=== PATIENT | female | born 1990 | race Caucasian/White ===

== ENCOUNTER 2017-02-13 15:43 | Emergency (ER) | payer OTHER ==
[2017-02-13 14:35] LABS: URINE APPEARANCE CLOUDY; URINE BILIRUBIN POS (NEG); URINE BLOOD 3+ (NEG); URINE COLOR YELLOW; URINE GLUCOSE NEG (NORM); URINE KETONE TRACE (NEG); URINE LEUKOCYTE ESTERASE 3+ (NEG); URINE NITRATE NEG (NEG); URINE PROTEIN 2+ (NEG); URINE SPECIFIC GRAVITY 1.025 (1.003-1.035)
[2017-02-13 14:37] LABS: MICRO INDICATED? YES; URINE SOURCE CLEAN CATCH
[2017-02-13 14:42] LABS: URINE BACTERIA 1+ (NEG); URINE RBC 50-100 /[HPF] (0-2); URINE WBC 200-300 /[HPF] (0-5)
[~2017-02-13 15:43] MED LIST: ADDERALL PO; ADDERALL5 MG PO; ALPRAZOLAM PO; AMITRIPTYLINE H25 MG PO; AMOXICILLIN500 M1 PO; CERTAGEN PO; CIPRO PO; CLARITIN10 M2 PO; ELIMITE60 GM TOP; FLEXERIL10 MG PO; IBUPROFEN; PHENERGAN PO; PREDNISONE10 MG/DOSE PO; PYRIDIUM PO; REMERON PO; RHINOCORT7 GM 200 D; ROBAXIN500 MG PO; SEROQUEL50 M1 PO; VICOPROFEN 200-1 TAB PO; VISTARIL PO; VOLTAREN50 MG PO; VOLTAREN75 MG PO
== END 2017-02-13 16:10 | disposition home or self-care (01) ==
LOC: SED 15:43
DX: N39.0 Urinary tract infection, site not specified (principal); R31.9 Hematuria, unspecified; Z98.890 Other specified postprocedural states; Z88.2 Allergy status to sulfonamides; Z88.6 Allergy status to analgesic agent
CPT/HCPCS: 81003; 87086; 87088; 87186; 99282; 99283

== ENCOUNTER 2017-05-09 20:20 | Emergency (ER) | payer OTHER ==
--- NOTE | ~2017-05-09 | CR58 ---
[facility] [[email or web address] A Service of [facility] & [facility] RADIOLOGY TEXT RESULTS PATIENT: YAS GARDNER LOCATION: SED : [birth year] UNIT #: [id number] AGE: [address]: Juvenal Navarrete SEX: F ORDER DR: [id number] [place] [id number] E MR#: [id number] Acc #: [id number] NAME: YAS GARDNER : 1990 SEX: F STUDY DATE/TIME: 05/09/2017 22:33 UNIT: SED ROOM: STUDY DESCRIPTION: CR Cervical Spine 2 or 3 Views Attending Physician: Juvenal Navarrete P.A.-C. Ordering Physician: Juvenal Navarrete P.A.-C. Primary Care Physician: No Primary Care Physician MEDICAL IMAGING REPORT This report is preliminary unless electronic signature is present. EXAM Cervical spine 05/09 2233 hours. INDICATIONS Neck pain with nausea after falling 2 days ago. FINDINGS Four views of the cervical spine are compared with 12/16/10. No fracture or subluxation is seen. Vertebral body heights and disc spaces are normal. Prevertebral soft tissues are normal. IMPRESSION Negative cervical spine. Dictated by... Servando Marques Jr., M.D. THIS IS AN ELECTRONICALLY VERIFIED REPORT Servando Marques Jr., M.D. at 05/10/2017 9:21 PM MICHA/kimberly TD: 05/10/2017 11:27 JOB #: [id number] MEDICAL IMAGING REPORT Page 1 of 1
--- NOTE | ~2017-05-09 | CR63 ---
[facility]. [facility] A Service of [facility] & [facility] RADIOLOGY TEXT RESULTS PATIENT: YAS GARDNER LOCATION: SED : [birth year] UNIT #: [id number] AGE: [address]: Juvenal Navarrete SEX: F ORDER DR: [id number] [place] [id number] E MR#: [id number] Acc #: [id number] NAME: YAS GARDNER : 1990 SEX: F STUDY DATE/TIME: 05/09/2017 22:33 UNIT: SED ROOM: STUDY DESCRIPTION: CR Chest 2 View Attending Physician: Juvenal Navarrete P.A.-C. Ordering Physician: Juvenal Navarrete P.A.-C. Primary Care Physician: No Primary Care Physician MEDICAL IMAGING REPORT This report is preliminary unless electronic signature is present. EXAM Chest x-ray, 05/09, 22:33. INDICATIONS Fell 2 days ago. Nausea. COMPARISON 04/29/14 FINDINGS PA and lateral examination of the chest upright shows a good expansion of the parenchyma with a normal distribution of the pulmonary vascularity. There is no indication of congestion, effusion, infiltrate, tumor, or nodular density. The pleural reflections and diaphragmatic contours are normal. The cardiac silhouette and mediastinal anatomy is within normal limits. IMPRESSION Normal chest. Dictated by... Servando Marques Jr., M.D. THIS IS AN ELECTRONICALLY VERIFIED REPORT Servando Marques Jr., M.D. at 05/10/2017 9:21 PM MICHA/jennifer TD: 05/10/2017 11:16 JOB #: [id number] MEDICAL IMAGING REPORT Page 1 of 1
--- NOTE | ~2017-05-09 | EKG ---
PATIENT: YAS GARDNER UNIT #: [id number] Ventricular Rate: 50 BPM Atrial Rate: 50 BPM P-R Interval: 148 ms QRS Duration: 86 ms Q-T Interval: 422 ms QTC Calculation(Bezet): 384 ms P [place]: 48 degrees Calculated R [place]: 76 degrees Calculated T [place]: 61 degrees Diagnosis Line: Sinus bradycardia Diagnosis Line: Otherwise normal ECG Diagnosis Line: When compared with ECG of 19-NOV-2013 15:13, Diagnosis Line: No significant change was found Diagnosis Line: Confirmed by MAGDALENE DESIR MD ([id number]) on Diagnosis Line: 05/11/2017 8:32:02 AM INTERPRETING MD: KARLEE SAHU
--- NOTE | ~2017-05-09 | CT71 ---
[facility] A Service of [facility] RADIOLOGY TEXT RESULTS PATIENT: YAS GARDNER LOCATION: SED : [birth year] UNIT #: [id number] AGE: [address]: Juvenal Navarrete SEX: F ORDER DR: [id number] [address] [address] [id number] E MR#: [id number] Acc #: [id number] NAME: YAS GARDNER. : 1990 SEX: F STUDY DATE/TIME: 05/09/2017 22:45 UNIT: SED ROOM: STUDY DESCRIPTION: CT Head Wo Contrast Attending Physician: Juvenal Navarrete P.A.-C. Ordering Physician: Juvenal Navarrete P.A.-C. Primary Care Physician: Primary Care Physician No MEDICAL IMAGING REPORT This report is preliminary unless electronic signature is present. EXAM CT head without contrast dated 05/09/[address] head without contrast dated 04/29/2014 HISTORY Fell 2 days ago. Patient hit head on floor which was tiled today. Headache, neck pain and nausea today. TECHNIQUE This CT exam was performed with one or more of the following radiation dose reduction techniques: automatic exposure control, adjustment of mA and/or kV according to patient size, and iterative reconstruction. FINDINGS CT of the head was obtained without contrast in the axial plane as per the protocol. Axial noncontrast images were obtained from the skull base to the vertex. Ventricular size and configuration are normal. There is no evidence of acute infarct or hemorrhage. There are no extraaxial fluid collections. No mass lesion or mass effect is seen. There are no skull fractures. Mild left maxillary sinus mucosal thickening. IMPRESSION Normal noncontrast head CT. Dictated by... Devon Farrar M.D. THIS IS AN ELECTRONICALLY VERIFIED REPORT [facility] A Service of [facility] RADIOLOGY TEXT RESULTS PATIENT: YAS GARDNER LOCATION: SED : [birth year] UNIT #: [id number] AGE: [address]: Juvenal Navarrete PAC SEX: F ORDER DR: Devon Farrar M.D. at 05/12/2017 3:38 PM CPR/mario TD: 05/10/2017 11:30 JOB #: [id number] MEDICAL IMAGING REPORT Page 1 of 1
[2017-05-09] MEDS ORDERED: COMBIVENT U/D3 M3 (20:50)
[2017-05-09] MEDS ORDERED: BREO ELLIPTA I1 EACH (20:51)
[2017-05-09] MEDS ORDERED: ZYRTEC (20:51)
[2017-05-09] MEDS ORDERED: ALBUTEROL20 ml (20:51)
[2017-05-09] MEDS ORDERED: KLONOPIN PO (20:52)
[2017-05-09] MEDS ORDERED: LAMICTAL (20:52)
[2017-05-09 22:12] LABS: BASOPHIL% 0.2 % (0-2.5); EOSINOPHIL# 0.4 X10e3 (0-0.7); EOSINOPHIL% 5.4 % (0.0-7.0); HEMATOCRIT 43.4 % (35.0-45.0); HEMOGLOBIN 14.7 gm/dL (12.0-16.0); LYMPHOCYTE# 2.2 X10e3 (1.0-3.5); LYMPHOCYTE% 30.2 % (17.0-45.0); MEAN CELL VOLUME 98.8 FL (83-96); MEAN CORPUSCULAR HEMOGLOBIN 33.3 PG (28-34); MEAN CORPUSCULAR HGB CONC 33.7 g/dL (30-36); MEAN PLATELET VOLUME 8.2 FL (6.5-11.5); MONOCYTE# 0.5 X10e3 (0-1.0); MONOCYTE% 6.4 % (3.0-12.0); NEUTROPHIL# 4.2 X10e3 (1.5-7.1); NEUTROPHIL% 57.8 % (40-75); PLATELET COUNT 218 X10e3 (140-420); WHITE BLOOD COUNT 7.2 X10e3 (4.0-10.5)
[2017-05-09 22:13] LABS: DIFF IND NO
[2017-05-09 22:26] LABS: ALBUMIN SERUM 3.7 g/dL (3.5-5.0); BILIRUBIN, DIRECT 0.2 mg/dL (0.0-0.2); BILIRUBIN,INDIRECT 0.7 mg/dL (0.0-0.9); BILIRUBIN,TOTAL 0.9 mg/dL (0.2-2.0); CALCIUM SERUM 8.3 mg/dL (8.4-10.2); CREATININE SERUM 0.6 mg/dL (0.6-1.4); GLOM FILT RATE Estimated 123.2 mL/min (>60); POTASSIUM 3.6 mmol/L (3.5-5.1); PROTEIN TOTAL SERUM 6.3 g/dL (6.0-8.3)
[2017-05-10 00:11] LABS: URINE SOURCE CLEAN CATCH
[2017-05-10 00:13] LABS: URINE APPEARANCE HAZY; URINE BILIRUBIN NEG (NEG); URINE BLOOD NEG (NEG); URINE COLOR YELLOW; URINE GLUCOSE NEG (NORM); URINE KETONE NEG (NEG); URINE LEUKOCYTE ESTERASE NEG (NEG); URINE NITRATE NEG (NEG); URINE PROTEIN NEG (NEG)
[2017-05-10 00:14] LABS: MICRO INDICATED? NO
== END 2017-05-10 01:09 | disposition home or self-care (01) ==
LOC: SED 20:20
PROVIDERS: Physician Assistant
DX: S09.90XA Unspecified injury of head, initial encounter (principal); R55 Syncope and collapse; F41.9 Anxiety disorder, unspecified; F17.210 Nicotine dependence, cigarettes, uncomplicated; Z79.899 Other long term (current) drug therapy; Z88.2 Allergy status to sulfonamides; W01.10XA Fall on same level from slipping, tripping and stumbling with subsequent striking against unspecified object, initial encounter; Y92.009 Unspecified place in unspecified non-institutional (private) residence as the place of occurrence of the external cause
CPT/HCPCS: 36415; 70450; 71020; 72040; 80048; 80076; 81003; 84703; 85025; 93005; 96374; 96375; 99285; J1885; J2405

== ENCOUNTER 2017-06-27 11:50 | Emergency (ER) | payer OTHER ==
[~2017-06-27] VITALS: Ht 165.1 cm; Wt 54.4 kg
[~2017-06-27 11:50] MED LIST changes: +ALBUTEROL20 ml; +BREO ELLIPTA I1 EACH; +COMBIVENT U/D3 M3; +KLONOPIN PO; +LAMICTAL; +ZYRTEC
[2017-06-27 12:17] LABS: URINE SOURCE CLEAN CATCH
[2017-06-27 12:21] LABS: URINE APPEARANCE TURBID; URINE BLOOD 3+ (NEG); URINE COLOR DK YELLOW; URINE GLUCOSE NEG (NEG); URINE KETONE TRACE (NEG); URINE LEUKOCYTE ESTERASE 3+ (NEG); URINE NITRATE POS (NEG); URINE PH 5.5 (5-8); URINE PROTEIN 2+ (NEG); URINE SPECIFIC GRAVITY 1.024 (1.003-1.035)
[2017-06-27 12:24] LABS: CULTURE INDICATED? YES; URBCS1 AUWI 200-300 /[HPF] (0-2); URINE BACTERIA AUWI 1+ (NEGATIVE); URINE SQUAMOUS EPITHELIAL CELL OCC /[HPF]; UWBCS1 AUWI INNUM (0-5)
[2017-06-27 12:34] LABS: URINE BILIRUBIN POS (NEG)
[2017-06-27 12:52] LABS: U HYALINE CASTS AUWI 25-50 /[LPF]; URINE MUCUS PRESENT
[2017-06-28 21:41] LABS: CHLAMYDIA TRACH Not Detected (Not Detected); N GONOR Not Detected (Not Detected)
== END 2017-06-27 13:20 | disposition home or self-care (01) ==
LOC: CED 11:50 → CFTX 11:50
PROVIDERS: Nurse Practitioner
DX: N30.01 Acute cystitis with hematuria (principal); F17.210 Nicotine dependence, cigarettes, uncomplicated; Z88.2 Allergy status to sulfonamides; Z79.899 Other long term (current) drug therapy
CPT/HCPCS: 81003; 84703; 87086; 87491; 87591; 87808; 87905; 99284